=== PATIENT | male | born 1970 | race Caucasian/White ===

== ENCOUNTER 2016-10-30 18:10 | Emergency (ER) | payer SELFPAY ==
[2016-10-30 18:19] VITALS: BP 126/76
--- NOTE | 2016-10-30 18:38 | PHYS DOC ---
Past History Past Medical History: No Pertinent History Past Surgical History: No Surgical History Smoking: Cigarettes, Greater than 1 pack/day Alcohol Use: Heavy Drug Use: Amphetamine, Methamphetamine Adult General Chief Complaint Chief Complaint: WITHDRAWL HPI HPI Patient is a pleasant 45-year-old male who presents today looking for treatment for alcohol and amphetamine abuse draw symptoms. Patient admits he drinks heavily every day within the fifth of the alcohol and has been using more than $ 100 of daily amphetamines. His usage of amphetamines only began about 6 months ago when he came up to visit a friend to help rebuild a house he was intending to sell. His friend introduced him to amphetamines at that time. He has no local address or friends, he has no local family. He goes from a drug house to drug house using amphetamines and sleeping on premises. 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 He does have 2 children and ex- live in [place]. Is no contact with his children at this time. He denies any chest pain, shortness breath, abdominal pain, nausea, vomiting, diarrhea. When he does complain of his generalized fatigue and weakness. He denies any history of DTs or seizures but he does not stay sober enough to see if any develop. He is looking for inpatient treatment of his severe alcohol and drug dependence. [facility] because he did not have enough time and service they do not have any ability to treat him. Review of Systems Review of Systems Constitutional: Denies fever or chills [] Eyes: Denies change in visual acuity, redness, or eye pain [] HENT: Denies nasal congestion or sore throat [] Respiratory: Denies cough or shortness of breath [] Cardiovascular: No additional information not addressed in HPI [] GI: Denies abdominal pain, nausea, vomiting, bloody stools or diarrhea [] : Denies dysuria or hematuria [] Musculoskeletal: Denies back pain or joint pain [] Integument: Denies rash or skin lesions [] Neurologic: He complains of generalized weakness without focal neurologic deficits or sensory changes. Endocrine: Denies polyuria or polydipsia [] Current Medications Current Medications Current Medications Medications (Trade) Dose Ordered Sig/Naomi Start Time Stop Time Status Last Admin Dose Admin Lorazepam (Ativan) 2 mg 1X ONCE 10/30/16 18:30 10/30/16 18:31 UNV Multivitamins/ Minerals 10 ml/ Folic Acid 1 mg/ Thiamine HCl 100 mg/Sodium Chloride 1,011.2 ml @ 1,000 mls/ hr Q1H 10/30/16 18:30 UNV Allergies Allergies Allergies Coded Allergies Type Severity Reaction Last Updated Verified No Known Drug Allergies 10/30/16 No Physical Exam Physical Exam Patient noted be very hypertensive Constitutional: Well developed, well nourished, patient is anxious but nontoxic in appearance HENT: Normocephalic, atraumatic, bilateral external ears normal, oropharynx moist, no oral exudates, nose normal. [] Eyes: PERRLA, EOMI, conjunctiva normal, no discharge. [] Neck: Normal range of motion, no tenderness, supple, no stridor. [] Cardiovascular:Heart rate regular rhythm, no murmur [] Lungs & Thorax: Bilateral breath sounds clear to auscultation [] Abdomen: Bowel sounds normal, soft, no tenderness, no masses, no pulsatile masses. [] Skin: Warm, dry, no erythema, no rash. [] Back: No tenderness, no CVA tenderness. [] Extremities: No tenderness, no cyanosis, no clubbing, ROM intact, no edema. [] Neurologic: Alert and oriented X 3, normal motor function, normal sensory function, no focal deficits noted. [] Psychologic: Affect normal, judgement normal, mood normal. [] Current Patient Data Lab Results Laboratory Tests Test 10/30/16 18:30 White Blood Count 9.8 x10^3/uL (4.0-11.0) Red Blood Count 4.90 x10^6/uL (4.30-5.70) Hemoglobin 15.2 g/dL (13.0-17.5) Hematocrit 44.1 % (39.0-53.0) Mean Corpuscular Volume 90 fL (79-100) Mean Corpuscular Hemoglobin 31 pg (25-35) Mean Corpuscular Hemoglobin Concent 34 g/dL (31-37) Red Cell Distribution Width 14.1 % (11.5-14.5) Platelet Count 215 x10^3/uL (140-400) Neutrophils (%) (Auto) 62 % (31-73) Lymphocytes (%) (Auto) 28 % (24-48) Monocytes (%) (Auto) 6 % (0-9) Eosinophils (%) (Auto) 3 % (0-3) Basophils (%) (Auto) 1 % (0-3) Neutrophils # (Auto) 6.1 x10^3uL (1.8-7.7) Lymphocytes # (Auto) 2.7 x10^3/uL (1.0-4.8) Monocytes # (Auto) 0.6 x10^3/uL (0.0-1.1) Eosinophils # (Auto) 0.3 x10^3/uL (0.0-0.7) Basophils # (Auto) 0.1 x10^3/uL (0.0-0.2) Sodium Level 138 mmol/L (136-145) Potassium Level 3.3 mmol/L (3.5-5.1) L Chloride Level 104 mmol/L (98-107) Carbon Dioxide Level 26 mmol/L (21-32) Anion Gap 8 (6-14) Blood Urea Nitrogen 15 mg/dL (8-26) Creatinine 1.1 mg/dL (0.7-1.3) Estimated GFR (Cockcroft-Gault) 72.1 Glucose Level 117 mg/dL (70-99) H Calcium Level 8.2 mg/dL (8.5-10.1) L Magnesium Level 2.0 mg/dL (1.8-2.4) Total Bilirubin 1.2 mg/dL (0.2-1.0) H Direct Bilirubin 0.3 mg/dL (0.0-0.2) H Aspartate Amino Transferase (AST) 52 U/L (15-37) H Alanine Aminotransferase (ALT) 77 U/L (16-63) H Alkaline Phosphatase 84 U/L (46-116) Total Protein 7.7 g/dL (6.4-8.2) Albumin 3.6 g/dL (3.4-5.0) Lipase 137 U/L (73-393) Salicylates Level 0.6 mg/dL (2.8-20.0) L Salicylate Last Dose Date 10/30/16 Salicylate Last Dose Time Unknown Urine Opiates Screen Neg (NEG) Urine Methadone Screen Neg (NEG) Acetaminophen Level < 2.0 mcg/mL (10-30) L Acetaminophen Last Dose Date 10/30/16 Acetaminophen Last Dose Time Unknown Urine Barbiturates Neg (NEG) Urine Phencyclidine Screen Neg (NEG) Urine Amphetamine/Methamphetamine Pos (NEG) Urine Benzodiazepines Screen Neg (NEG) Urine Cocaine Screen Neg (NEG) Urine Cannabinoids Screen Neg (NEG) Ethyl Alcohol Level < 10 mg/dL (0-10) Urine Ethyl Alcohol Neg (NEG) EKG EKG [] EKG time 6:34 PM 10/30/2016 deficits normal sinus rhythm heart rate of 66 LA interval of 184. QT of 434 QRS of 82. This is a normal sinus rhythm normal EKG with a similar T-wave changes consistent with acute cardiac ischemia. EKG read by Dr. Aguirre Radiology/Procedures Radiology/Procedures [] Course & Med Decision Making Course & Med Decision Making Pertinent Labs and Imaging studies reviewed. (See chart for details) Patient presented to the emergency department requesting help with his detox. Patient tells me about his amphetamine abuse which some recently started about 6 months ago but long-term setting of alcohol abuse. He typically has his homeless to go through but they're not long-term facilities that hemostat. He denies any homicidal or suicidal thoughts. He denies any visual or auditory hallucinations. Patient's hemoglobin is stable on no medications for any reasons or for other psychiatric illnesses. Patient has never had a problem with his thyroid, liver, lungs or heart. He denies any DTs or history of seizures with withdrawal of alcohol on the past. His alcohol level today is less than 10. His acetaminophen and salicylate levels are below detectable numbers newly elevated on his laboratory work is mild elevation of his AST and LT which are only twice normal. He's T bili is 1.2 After the Ativan patient is definitely not a danger to herself or anybody else is exhibiting no symptoms. He is interested in outpatient follow-up for his vitamin abuse. He understands his need to get away from the environment and the supporting and causing his addiction. With this follow-up plan. This patient has urinated without issue here in the emergency department he's been compliant with staff. Patient will be provided some clonidine as an outpatient help with his withdrawal symptoms. And follow-up with the crisis Center, guidance Center for outpatient management of his addiction issues. Impression: Amphetamine and alcohol abuse and addiction [] Dragon Disclaimer Dragon Disclaimer This chart was dictated in whole or in part using Voice Recognition software in a busy, high-work load, and often noisy Emergency Department environment. It may contain unintended and wholly unrecognized errors or omissions. 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 Please follow- up with the crisis Center or guidance center to help you with your addiction needs. Please return here if you have any problems with withdrawal symptoms. You 've been provided a medication you do with these withdrawal symptoms but this will not fixture challenges as you need ongoing counseling and support to help with this very complex problem. Scripts Clonidine Hcl (CLONIDINE HCL) 0.1 Mg Tablet 1 TAB PO QHS, #10 TAB 0 Refills Prov: CASSIDY AGUIRRE MD 10/30/16 Problem Qualifiers CASSIDY AGUIRRE MD Oct 30, 2016 18:38
[2016-10-30] MEDS ORDERED: LORazepam 1 MG TABLET PO ONE (18:45)
[2016-10-30] MEDS ORDERED: MVI, ADULT NO.4 WITH VIT K 10 ML, FOLIC ACID 1 MG, THIAMINE 100 MG in IV NORMAL SALINE ... IV SCH ×4 (18:45)
[2016-10-30 18:53] LABS: BASO # 0.1 x10^3/uL (0.0-0.2); BASO % 1 % (0-3); EOS # 0.3 x10^3/uL (0.0-0.7); EOS % 3 % (0-3); HEMATOCRIT 44.1 % (39.0-53.0); HEMOGLOBIN 15.2 g/dL (13.0-17.5); LYMPH # 2.7 x10^3/uL (1.0-4.8); LYMPH % 28 % (24-48); MEAN CORPUSCULAR HEMOGLOBIN 31 pg (25-35); MEAN CORPUSCULAR HGB CONC 34 g/dL (31-37); MEAN CORPUSCULAR VOLUME 90 fL (79-100); MONO # 0.6 x10^3/uL (0.0-1.1); MONO % 6 % (0-9); NEUT # 6.1 x10^3uL (1.8-7.7); NEUT % 62 % (31-73); PLATELET COUNT 215 x10^3/uL (140-400); RED CELL DISTRIBUTION WIDTH 14.1 % (11.5-14.5); WHITE BLOOD COUNT 9.8 x10^3/uL (4.0-11.0)
[2016-10-30 19:02] LABS: ALBUMIN 3.6 g/dL (3.4-5.0); CALCIUM 8.2 mg/dL (8.5-10.1); CREATININE 1.1 mg/dL (0.7-1.3); DIRECT BILIRUBIN 0.3 mg/dL (0.0-0.2); GFR 72.1; POTASSIUM 3.3 mmol/L (3.5-5.1); TOTAL BILIRUBIN 1.2 mg/dL (0.2-1.0); TOTAL PROTEIN 7.7 g/dL (6.4-8.2)
[2016-10-30 19:03] LABS: ACETAMIN < 2.0 mcg/mL (10-30); ETHANOL < 10 mg/dL (0-10); SALIC 0.6 mg/dL (2.8-20.0)
[2016-10-30 19:38] LABS: BARBITURATES NEG (NEG); BENZODIAZEPINES NEG (NEG); CANNABINOIDS NEG (NEG); COCAINE NEG (NEG); METHADONE NEG (NEG); OPIATES NEG (NEG); PHENCYCLIDINE NEG (NEG)
[2016-10-30 19:39] LABS: AMPHETAMINE/METHAMPHETAMINE POS (NEG)
[2016-10-30 20:02] LABS: BILIRUBIN,URINE NEG (NEG); CLARITY,URINE CLEAR; COLOR,URINE YELLOW; GLUCOSE,URINE NEG (NEG); NITRITE,URINE NEG (NEG); UROBILINOGEN,URINE 0.2 mg/dL (0.2 mg/dL)
[2016-10-30 20:03] LABS: BACTERIA,URINE 0 /HPF (0-FEW); HYALINE CASTS, URINE MOD /HPF; SQUAMOUS EPITHELIAL CELL,UR FEW /LPF
[2016-10-30] MEDS ORDERED: CLON0.1T PO (20:04)
--- NOTE | 2016-10-31 06:38 | EKG ---
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
== END 2016-10-30 20:28 | disposition home or self-care (01) ==
LOC: ER 18:10
DX: F10.10 Alcohol abuse, uncomplicated (principal); F15.10 Other stimulant abuse, uncomplicated; F17.210 Nicotine dependence, cigarettes, uncomplicated
CPT/HCPCS: 36415; 80048; 80076; 80307; 81001; 83690; 83735; 84443; 85025; 93005; 96365; 99285; G0480; G0479; J7030